=== PATIENT | female | born 1940 | race Hispanic/Latino ===

== ENCOUNTER → 2017-06-24 | Outpatient (CLI) | payer OTHER ==
[~2017-06-24] MED LIST: IBUP-2353 PO
== END | disposition home or self-care (01) ==
LOC: SHCH 12:54
PROVIDERS: ATTEND Internal Medicine Cardiovascular Disease
DX: I35.0 Nonrheumatic aortic (valve) stenosis (principal)
CPT/HCPCS: 93306

== ENCOUNTER → 2018-06-25 | Outpatient (CLI) | payer OTHER, MEDICARE | END | disposition home or self-care (01) | LOC: SHCH 09:51 | PROVIDERS: ATTEND Internal Medicine Cardiovascular Disease | DX: I51.7 Cardiomegaly (principal); I35.0 Nonrheumatic aortic (valve) stenosis | CPT/HCPCS: 93306 ==

== ENCOUNTER → 2018-09-27 | Outpatient (CLI) | payer OTHER, MEDICARE ==
[~2018-09-27] MED LIST changes: +ACET-2893 PO; +ALEN70TA10 PO; +CA C-5 PO; +FLUT15.88 NS; +LEVO50TA11 PO; +LORA-868 PO; +MECL12.585 PO; +PRAV40TA3 PO; +RANI150T7 PO
[2018-09-27 14:58] LABS: CREATININE 1.2 mg/dL (0.5-1.5)
== END | disposition home or self-care (01) ==
LOC: LAB 13:52
PROVIDERS: ATTEND Otolaryngology Plastic Surgery within the Head & Neck
DX: H90.3 Sensorineural hearing loss, bilateral (principal)
CPT/HCPCS: 36415; 82565; 84520

== ENCOUNTER → 2018-09-28 | Outpatient (CLI) | payer OTHER, MEDICARE ==
[~2018-09-28] MED LIST changes: +GADODIAMIDE 10 MMOL/20 ML VIAL IV ONE
== END | disposition home or self-care (01) ==
LOC: RAH 13:41
PROVIDERS: ATTEND Otolaryngology Plastic Surgery within the Head & Neck
DX: H90.3 Sensorineural hearing loss, bilateral (principal); R90.82 White matter disease, unspecified
CPT/HCPCS: 70553 ×2; A9579

== ENCOUNTER 2018-10-04 07:02 | Observation (INO) | payer OTHER, MEDICARE ==
[2018-10-01 17:08] LABS: BASOPHILS % (AUTO) 0.8 % (0.0-5.0); EOSINOPHILS % (AUTO) 5.2 % (0.0-8.0); HEMATOCRIT 37.8 % (36-48); LYMPHOCYTES % (AUTO) 32.9 % (21.0-51.0); MEAN CORPUSCULAR HEMOGLOBIN 33.1 pg (27.0-33.0); MEAN CORPUSCULAR HGB CONC 33.5 g/dL (32.0-36.0); MEAN CORPUSCULAR VOLUME 98.7 fL (79-99); MONOCYTES % (AUTO) 11.3 % (3.0-13.0); NEUTROPHILS % (AUTO) 49.8 % (40.0-77.0); PLATELET COUNT (AUTO) 133 K/uL (130-400); RED BLOOD CELL COUNT(AUTO) 3.83 MIL/uL (4.00-5.50); WHITE BLOOD COUNT (AUTO) 4.4 K/uL (4.8-10.8)
[2018-10-01 17:16] LABS: INR 0.95 (0.85-1.15); PARTIAL THROMBOPLASTIN TIME 29.6 SEC (26.3-35.5)
[2018-10-01 17:19] LABS: POTASSIUM 3.8 mmol/L (3.5-5.1)
[2018-10-01 17:44] VITALS: BP 160/73
--- NOTE | 2018-10-01 18:34 | NUR ---
DR. HERNANDEZ AWARE PT DOES NOT WANT TO RECEIVE BLOOD OR BLOOD PRODUCTS. OK TO PROCEED WITH SURGERY.
[2018-10-04] VITALS (22 sets, daily range): BP systolic 80–143; BP diastolic 44–74
[~2018-10-04] VITALS: Ht 152.4 cm; Wt 73.5 kg
[2018-10-04] MEDS: CEFAZOLIN SODIUM 1 GM VIAL IVP SCH ×3 (06:00→18:04)
[~2018-10-04 07:02] MED LIST changes: -GADODIAMIDE 10 MMOL/20 ML VIAL IV ONE; -IBUP-2353 PO
--- NOTE | 2018-10-04 08:40 | NUR ---
POTENTIAL FOR INFECTION: SKIN AND NASAL ANTISEPTIC IODINE SWAB TO BILATERAL NOSTRILS DONE.
[2018-10-04] MEDS: LACTATED RINGERS 1000ML 1,000 ML IV SCH ×2 (08:59→10:44)
--- NOTE | 2018-10-04 09:00 | NUR ---
POTENTIAL FOR INFECTION: NO SHAVING NEEDED TO RIGHT KNEE / LEG. WIPED WITH SONNY: 2% CHLORHEXIDINE GLUCONATE CLOTH PATIENTS PRE-OP SKIN PREP PER JALIL STANFORD MA.
[2018-10-04] MEDS ORDERED: ASPI-555 PO (09:29)
[2018-10-04] MEDS ORDERED: MIDAZOLAM HCL 1 MG/ML 2ML VIAL ONE ×3 (10:49→13:40)
[2018-10-04] MEDS ORDERED: DEXAMETHASONE SOD PHOSPHATE 10MG/ML 1ML VIAL ONE (10:55)
[2018-10-04] MEDS ORDERED: ONDANSETRON HCL 4 MG/2 ML VIAL ONE (10:55)
[2018-10-04] MEDS ORDERED: LIDOCAINE PF 2% 5ML ABBOJECT ONE (10:55)
[2018-10-04] MEDS ORDERED: PROPOFOL 10 MG/ML 20ML VIAL IV ONE (10:55)
[2018-10-04] MEDS ORDERED: FENTANYL CITRATE PF 50 MCG/1 ML 2ML VIAL ONE (10:55)
[2018-10-04] MEDS ORDERED: EPHEDRINE SULFATE 50 MG/ML AMPULE ONE (11:12)
[2018-10-04] MEDS ORDERED: ROCURONIUM 10MG/1ML SYR 10 MG/ML ML ONE (11:19)
[2018-10-04] MEDS ORDERED: TRANEXAMIC ACID 1000MG/10ML IV ONE (12:07)
[2018-10-04] MEDS ORDERED: NEOSTIGMINE 5MG/5ML SYR IV ONE (12:21)
[2018-10-04] MEDS ORDERED: GLYCOPYRROLATE 1 MG/5 ML SYRINGE ONE (12:21)
[2018-10-04] MEDS ORDERED: TRAMADOL HCL 50 MG TABLET PO PRN (13:00)
[2018-10-04] MEDS ORDERED: FERROUS FUMARATE 324 MG TABLET PO PRN (13:00)
[2018-10-04] MEDS ORDERED: MECLIZINE HCL 12.5 MG TABLET PO PRN (13:00)
[2018-10-04] MEDS ORDERED: ONDANSETRON HCL 4 MG/2 ML VIAL IVP PRN (13:00)
[2018-10-04] MEDS ORDERED: CALCIUM CARBONATE 500 MG TABLET PO PRN (13:00)
[2018-10-04] MEDS ORDERED: MEPERIDINE-PF 25 MG/ML SYG ONE (13:16)
[2018-10-04] MEDS ORDERED: ROPIVACAINE 0.5% 5MG/ML 30ML IJ ONE (13:41)
[2018-10-04] MEDS: ACETAMINOPHEN EXTRA STRENGTH 500 MG TABLET PO SCH ×2 (14:22→20:41)
[2018-10-04] MEDS: SODIUM CHLORIDE 0.9% 1000ML 1,000 ML IV SCH (14:22)
[2018-10-04] MEDS: OXYCODONE HCL 5 MG TAB PO PRN ×2 (15:32→21:39)
--- NOTE | 2018-10-04 18:03 | NUR ---
INITIAL AND ORDER FOR RETYESI MET W PT AT [facility]- S/P TKA; LIVES ALONE, [place], HAD COMODDE AND WKR; PROVIDER 3 HRS DAY- CANNOT STAY W DAUGHTER POST OP, DAUGHTER CANNOT STAY WITH HER; ORDER FOR [facility] FOR SHORT TERM REHAB FORM DR. HERNANDEZ- MALCOLM/TRENT VERBAL FROM PT ; CALL TO DAUGHTER ARNOLD TO CONSENT TO PLAN [facility]EL[facility]; REFERRAL PENDING FOR AM Addendum: 10/04/18 at 1806 by ESTEPHANIE QUIROS RN Amended: Links added.
[2018-10-04] MEDS: ASPIRIN 81 MG EC TAB PO SCH (20:37)
[2018-10-05] MEDS: CEFAZOLIN SODIUM 1 GM VIAL IVP SCH (01:54)
[2018-10-05] MEDS: SODIUM CHLORIDE 0.9% 1000ML 1,000 ML IV SCH ×2 (01:54→08:56)
[2018-10-05 04:00] VITALS: BP 89/60
[2018-10-05 04:22] LABS: MEAN CORPUSCULAR HEMOGLOBIN 33.8 pg (27.0-33.0); MEAN CORPUSCULAR HGB CONC 34.5 g/dL (32.0-36.0); MEAN CORPUSCULAR VOLUME 98.1 fL (79-99); PLATELET COUNT (AUTO) 124 K/uL (130-400); RED BLOOD CELL COUNT(AUTO) 3.06 MIL/uL (4.00-5.50); RED CELL DISTRIBUTION WIDTH 14.7 % (11.0-15.5); WHITE BLOOD COUNT (AUTO) 7.1 K/uL (4.8-10.8)
[2018-10-05 04:34] LABS: CREATININE 1.1 mg/dL (0.5-1.5); POTASSIUM 3.8 mmol/L (3.5-5.1)
[2018-10-05] MEDS: ACETAMINOPHEN EXTRA STRENGTH 500 MG TABLET PO SCH ×3 (06:36→19:53)
[2018-10-05 08:00] VITALS: BP 95/56
[2018-10-05] MEDS: LEVOTHYROXINE 50 MCG TABLET PO SCH (08:30)
[2018-10-05] MEDS: FAMOTIDINE 20MG TAB 20 MG TAB PO SCH (08:30)
[2018-10-05] MEDS: POLYETHYLENE GLYCOL 3350 17 GM POWD.PACK PO SCH (08:30)
[2018-10-05] MEDS: ASPIRIN 81 MG EC TAB PO SCH ×2 (08:30→19:52)
[2018-10-05] MEDS: OXYCODONE HCL 5 MG TAB PO PRN ×2 (08:36→19:56)
[2018-10-05 11:00] VITALS: BP 91/52
[2018-10-05 16:00] VITALS: BP 95/52
--- NOTE | 2018-10-05 16:45 | NUR ---
DONAL WETZEL RN AWARE RN TO FOLLOW UP WITH FOR DC ORDER FOR TODAY IF ARIANA ISSA AWARE LOC [facility] DC TONIGHT OR TOMORROW Addendum: 10/05/18 at 1848 by ESTEPHANIE QUIROS RN CM Amended: Links added.
[2018-10-05 19:54] VITALS: BP 100/59
[2018-10-05 23:15] VITALS: BP 111/61
[2018-10-06] MEDS: OXYCODONE HCL 5 MG TAB PO PRN ×2 (00:09→08:56)
[2018-10-06 04:00] VITALS: BP 131/65
[2018-10-06] MEDS: ACETAMINOPHEN EXTRA STRENGTH 500 MG TABLET PO SCH ×2 (04:29→13:26)
[2018-10-06 07:51] VITALS: BP 137/65
[2018-10-06] MEDS: ASPIRIN 81 MG EC TAB PO SCH (08:54)
[2018-10-06] MEDS: FAMOTIDINE 20MG TAB 20 MG TAB PO SCH (08:55)
[2018-10-06] MEDS: LEVOTHYROXINE 50 MCG TABLET PO SCH (08:55)
[2018-10-06] MEDS: POLYETHYLENE GLYCOL 3350 17 GM POWD.PACK PO SCH (08:56)
[2018-10-06 11:12] VITALS: BP 132/74
--- NOTE | 2018-10-06 16:10 | NUR ---
ATTEMPTED TO CALL [facility] FOR REPORT CALLED [facility] [phone] AND WAS TOLD NURSE WOULD CALL ME BACK FOR REPORT, GAVE MY CALLBACK NUMBER. AWAITING CALLBACK.
--- NOTE | 2018-10-06 16:35 | NUR ---
REATTEMPTED TO CALL [facility] SLITTER AND REWINDER CALLED [facility] TO INFORM STAFF I AM ATTEMPTING TO CALL TO GIVE NURSE REPORT. CALLBACK NUMBER GIVEN, AWAITING CALLBACK.
--- NOTE | 2018-10-06 16:50 | NUR ---
[facility] REPORT GIVEN TO ROSALBA TIRADO OF [facility] [phone]. MEDICATIONS RECONCILIATION FORM FAXED TO [phone]. ROSALBA TIRADO ASKED ME TO FAX MEDICATIONS RECONCILIATION FORM TO [phone]. [address] HERNANDEZ TO INFORM MD THAT [facility] MAY NOT HAVE PRN PAIN MEDICATIONS AVAILABLE WITHOUT A WRITTEN RX AND MD STATED HE WOULD ENSURE THE RX WOULD BE SENT TO [facility].
--- NOTE | 2018-10-06 17:15 | NUR ---
DISCHARGE DISCHARGE TEACHING PROVIDED TO PATIENT. INFORMED OF SCHEDULED F/U WITH DR. BRANDT, AND MANUEL RIVERA FOR DR. HERNANDEZ DISCHARGE INSTRUCTIONS. REMOVED 20G IV FROM LEFT HAND, CATHETER INTACT. RIGHT KNEE INCISION DRESSING DRY AND INTACT, DRESSING CHANGE PERFORMED TODAY PER BUILDING INSPECTION ENGINEER NURSE REPORT AT CHANGE OF SHIFT. PATIENT VERBALIZED UNDERSTANDING OF DISCHARGE TEACHING.
[2018-10-07] MEDS ORDERED: BISACODYL 10 MG SUPP.RECT RC PRN (13:00)
== END 2018-10-06 17:31 ==
LOC: DAH 07:02 → 4BH 07:03 → INTOOBSV 07:03 → DAH 07:03
PROVIDERS: ADMIT Orthopaedic Surgery; ATTEND Orthopaedic Surgery
DX: M17.11 Unilateral primary osteoarthritis, right knee (principal)
CPT/HCPCS: 27447; 36415 ×2; 80048 ×2; 85025; 85027; 85610; 85730; 86850; 86900; 86901; 87641; 88305; 88311; 96374; 96376; 97116 ×4; 97161; 97530 ×4; A4450; A4649 ×5; A4930; A6223; C1776; G0378 ×47; G8978; G8979; G8980; G8981; G8982; G8983; J0690 ×3; J1100; J2001; J2175; J2250 ×3; J2405; J2704; J2710; J2795; J3010; J3490 ×3; J7030; J7120

== ENCOUNTER → 2019-07-21 | Outpatient (CLI) | payer OTHER, MEDICARE ==
[~2019-07-21] MED LIST changes: +ASPI-555 PO; +FLUT15.845 NS; -FLUT15.88 NS; +MECL-183 PO; -MECL12.585 PO
== END | disposition home or self-care (01) ==
LOC: OIH 08:53
PROVIDERS: ATTEND Family Medicine
DX: R05 Cough (principal)
CPT/HCPCS: 71046

== ENCOUNTER → 2019-08-01 | Outpatient (CLI) | payer OTHER, MEDICARE ==
[~2019-08-01] MED LIST changes: -ALEN70TA10 PO; +ALEN70TA69 PO; -ASPI-555 PO; +ASPI-556 PO
== END | disposition home or self-care (01) ==
LOC: RAH 13:40
PROVIDERS: ATTEND Family Medicine
DX: J43.2 Centrilobular emphysema (principal); J98.11 Atelectasis; R91.1 Solitary pulmonary nodule; J84.10 Pulmonary fibrosis, unspecified; K75.3 Granulomatous hepatitis, not elsewhere classified; M47.815 Spondylosis without myelopathy or radiculopathy, thoracolumbar region; M25.78 Osteophyte, vertebrae
CPT/HCPCS: 71250

== ENCOUNTER → 2020-08-14 | Outpatient (CLI) | payer OTHER, MEDICARE ==
[~2020-08-14] MED LIST changes: -ALEN70TA69 PO; +ALEN70TA80 PO; -MECL-183 PO; +MECL-226 PO
== END | disposition home or self-care (01) ==
LOC: SHCH 08-13 09:05
PROVIDERS: ATTEND Internal Medicine Cardiovascular Disease
DX: I35.0 Nonrheumatic aortic (valve) stenosis (principal); E66.9 Obesity, unspecified; E78.5 Hyperlipidemia, unspecified; C34.90 Malignant neoplasm of unspecified part of unspecified bronchus or lung; R55 Syncope and collapse
CPT/HCPCS: 93306; 93356

== ENCOUNTER → 2020-08-20 | Outpatient (CLI) | payer OTHER, MEDICARE | END | disposition home or self-care (01) | LOC: RAH 14:33 | PROVIDERS: ATTEND Family Medicine | DX: M17.12 Unilateral primary osteoarthritis, left knee (principal) | CPT/HCPCS: 73562 ==

== ENCOUNTER → 2020-08-24 | Outpatient (CLI) | payer OTHER, MEDICARE | END | disposition home or self-care (01) | LOC: RAH 08:45 | PROVIDERS: ATTEND Family Medicine | DX: K76.0 Fatty (change of) liver, not elsewhere classified (principal); R10.13 Epigastric pain | CPT/HCPCS: 76700 ==

== ENCOUNTER → 2020-10-15 | Outpatient (CLI) | payer OTHER, MEDICARE | END | disposition home or self-care (01) | LOC: RAH 09:04 | PROVIDERS: ATTEND Internal Medicine Gastroenterology | DX: K74.60 Unspecified cirrhosis of liver (principal) | CPT/HCPCS: 76700 ==

== ENCOUNTER 2021-01-16 19:56 | Emergency (ER) | payer OTHER, MEDICARE ==
[~2021-01-16] VITALS: Ht 149.9 cm; Wt 81.2 kg
[2021-01-16] MEDS ORDERED: FUROSEMIDE 40MG VIAL IV STA (20:36)
[2021-01-16 21:30] LABS: BASOPHILS % (AUTO) 1.4 % (0.0-5.0); EOSINOPHILS % (AUTO) 8.7 % (0.0-8.0); HEMATOCRIT 33.9 % (36-48); LYMPHOCYTES % (AUTO) 25.6 % (21.0-51.0); MEAN CORPUSCULAR HEMOGLOBIN 31.8 pg (27.0-33.0); MEAN CORPUSCULAR HGB CONC 31.9 g/dL (32.0-36.0); MEAN CORPUSCULAR VOLUME 99.7 fL (79-99); MONOCYTES % (AUTO) 13.7 % (3.0-13.0); NEUTROPHILS % (AUTO) 50.1 % (40.0-77.0); PLATELET COUNT (AUTO) 153 K/uL (130-400); RED CELL DISTRIBUTION WIDTH 15.9 % (11.0-15.5); WHITE BLOOD COUNT (AUTO) 4.4 K/uL (4.8-10.8)
[2021-01-16 21:42] LABS: CREATININE 1.2 mg/dL (0.5-1.5); POTASSIUM 3.4 mmol/L (3.5-5.1)
[2021-01-16 21:46] LABS: ALBUMIN 3.3 g/dL (3.5-5.0); BILIRUBIN,TOTAL 0.5 mg/dL (0.2-1.0)
[2021-01-16 21:51] LABS: B-TYPE NATRIURETIC PEPTIDE 39 pg/mL (0-100)
[2021-01-16] MEDS ORDERED: FURO-152 PO (22:07)
[2021-01-16 22:55] VITALS: BP 108/68
== END 2021-01-16 23:20 | disposition home or self-care (01) ==
LOC: EDH 19:56
DX: I35.0 Nonrheumatic aortic (valve) stenosis (principal); R60.0 Localized edema; I11.0 Hypertensive heart disease with heart failure; I50.9 Heart failure, unspecified; E78.5 Hyperlipidemia, unspecified; J44.9 Chronic obstructive pulmonary disease, unspecified; E03.9 Hypothyroidism, unspecified; E66.9 Obesity, unspecified; Z79.82 Long term (current) use of aspirin; Z79.899 Other long term (current) drug therapy; Z98.890 Other specified postprocedural states; Z68.36 Body mass index [BMI] 36.0-36.9, adult
CPT/HCPCS: 36415; 71045; 80053; 82550; 83880; 84484; 85025; 93005; 96374; 99285; J1940

== ENCOUNTER 2021-06-26 07:27 | Day surgery (SDC) | payer OTHER, MEDICARE ==
[2021-06-24 14:38] LABS: APPEARANCE,URINE Cloudy (CLEAR); BILIRUBIN,URINE Negative (NEGATIVE); COLOR,URINE Dark Yellow (YELLOW); GLUCOSE, URINE (UA) Negative (NEGATIVE); KETONES,URINE Trace mg/dL (NEGATIVE); LEUKOCYTE ESTERASE ,URINE Moderate (NEGATIVE); NITRATE,URINE Negative (NEGATIVE); OCCULT BLOOD,URINE Negative (NEGATIVE); PH,URINE 6.5 (5.0-8.0); PROTEIN,URINE Negative (NEGATIVE)
[2021-06-24 14:44] LABS: BASOPHILS % (AUTO) 0.7 % (0.0-5.0); EOSINOPHILS % (AUTO) 5.4 % (0.0-8.0); HEMATOCRIT 40.4 % (36-48); LYMPHOCYTES % (AUTO) 30.2 % (21.0-51.0); MEAN CORPUSCULAR HEMOGLOBIN 31.8 pg (27.0-33.0); MEAN CORPUSCULAR HGB CONC 31.7 g/dL (32.0-36.0); MEAN CORPUSCULAR VOLUME 100.5 fL (79-99); MONOCYTES % (AUTO) 10.8 % (3.0-13.0); NEUTROPHILS % (AUTO) 52.7 % (40.0-77.0); PLATELET COUNT (AUTO) 160 K/uL (130-400); RED BLOOD CELL COUNT(AUTO) 4.02 MIL/uL (4.00-5.50); RED CELL DISTRIBUTION WIDTH 14.1 % (11.0-15.5); WHITE BLOOD COUNT (AUTO) 5.7 K/uL (4.8-10.8)
[2021-06-24 14:52] LABS: POTASSIUM 3.4 mmol/L (3.5-5.1)
[2021-06-24 14:53] LABS: PROTHROMBIN TIME 10.9 SEC (9.6-11.6)
[2021-06-24 14:54] LABS: PARTIAL THROMBOPLASTIN TIME 27.4 SEC (26.3-35.5)
[2021-06-24 16:10] LABS: RBC,URINE 0-1 /HPF (0-1)
[2021-06-24 16:11] LABS: BACTERIA,URINE Few /HPF (None Seen); MUCUS,URINE Few LPF (None Seen); SQUAMOUS EPITHELIAL CELL,UR Moderate /HPF (0-2)
[2021-06-25 10:32] VITALS: BP 138/58
[2021-06-26] VITALS (9 sets, daily range): BP systolic 110–136; BP diastolic 40–63
[~2021-06-26] VITALS: Ht 121.9 cm; Wt 67.5 kg
[~2021-06-26 07:27] MED LIST changes: +0.9% NACL 500ML IV.SOLN 500 ML IV SCH; -ACET-2893 PO; -ASPI-556 PO; -CA C-5 PO; +CALC-1125 PO; +DULO30CA52 PO; +FAMO40TA7 PO; +FERR-82 PO; -FLUT15.845 NS; +FURO20TA4 PO; +GLYB2.5T6 PO; -LORA-868 PO; +MAGN250T10 PO; +OMEP40CA21 PO; +POTA10CA44 PO; -RANI150T7 PO
[2021-06-26] MEDS ORDERED: 0.9%NACL 1000ML 1,000 ML IV ONE (07:33)
[2021-06-26] MEDS ORDERED: HEPARIN 10,000 UNIT/10ML (1,000 UNIT/ML) VIAL ONE (13:00)
[2021-06-26] MEDS ORDERED: NITROGLYCERIN 50MG VIAL ONE (13:00)
[2021-06-26] MEDS ORDERED: MIDAZOLAM HCL 1 MG/ML 2ML VIAL ONE (13:00)
[2021-06-26] MEDS ORDERED: FENTANYL CITRATE PF 50 MCG/1 ML 2ML VIAL ONE (13:00)
[2021-06-26] MEDS ORDERED: LIDOCAINE HCL 1% MDV 50ML VIAL ONE (13:01)
[2021-06-26] MEDS ORDERED: IOHEXOL 350 MG/ML 100ML INFUS..BTL IV ONE (13:03)
[2021-06-26] MEDS ORDERED: IOHEXOL-350 50ML VIAL IV ONE (13:03)
[2021-06-26] MEDS ORDERED: DEXTROSE 50%-WATER 50 ML DISP.SYRIN IV PRN (15:30)
[2021-06-26] MEDS ORDERED: 0.9%NACL 1000ML 1,000 ML IV SCH (15:30)
[2021-06-26] MEDS ORDERED: GLUCAGON 1MG KIT 1 MG ML IM PRN (15:30)
[2021-06-26] MEDS ORDERED: INSULIN HUMULIN R 100 UNIT/ML 3ML SQ SCH (16:30)
== END 2021-06-26 18:10 | disposition home or self-care (01) ==
LOC: DAH 07:27 → EDSTATUS 12:00 → DAH 18:10
PROVIDERS: ATTEND Internal Medicine Cardiovascular Disease
DX: I35.0 Nonrheumatic aortic (valve) stenosis (principal); I25.10 Atherosclerotic heart disease of native coronary artery without angina pectoris; I11.0 Hypertensive heart disease with heart failure; I50.33 Acute on chronic diastolic (congestive) heart failure; E11.9 Type 2 diabetes mellitus without complications; E78.5 Hyperlipidemia, unspecified; E03.9 Hypothyroidism, unspecified; Z90.710 Acquired absence of both cervix and uterus; Z83.3 Family history of diabetes mellitus; Z79.899 Other long term (current) drug therapy; Z79.01 Long term (current) use of anticoagulants
CPT/HCPCS: 36415 ×2; 71045; 80048; 81001; 82948 ×2; 84132; 85025; 85610; 85730; 87088; 93005; 93460; A4215; A4216; A4221; A4222; A4223 ×3; A4606; A4663; C1760 ×2; C1893; C1894 ×3; J1644; J3010; J3490 ×2; J7030; Q9965; Q9967 ×2; 99156; 99157; J2250

== ENCOUNTER 2021-09-20 09:00 | Observation (INO) | payer OTHER, MEDICARE ==
[~2021-09-20] VITALS: Ht 149.9 cm; Wt 65.3 kg
[~2021-09-20 09:00] MED LIST changes: -0.9% NACL 500ML IV.SOLN 500 ML IV SCH
[2021-09-20 09:44] LABS: BASOPHILS % (AUTO) 0.3 % (0.0-5.0); HEMATOCRIT 31.2 % (36-48); LYMPHOCYTES % (AUTO) 6.5 % (21.0-51.0); MEAN CORPUSCULAR HEMOGLOBIN 31.8 pg (27.0-33.0); MEAN CORPUSCULAR HGB CONC 32.1 g/dL (32.0-36.0); MEAN CORPUSCULAR VOLUME 99.4 fL (79-99); MONOCYTES % (AUTO) 3.1 % (3.0-13.0); NEUTROPHILS % (AUTO) 89.8 % (40.0-77.0); PLATELET COUNT (AUTO) 120 K/uL (130-400); RED BLOOD CELL COUNT(AUTO) 3.14 MIL/uL (4.00-5.50); RED CELL DISTRIBUTION WIDTH 13.1 % (11.0-15.5); WHITE BLOOD COUNT (AUTO) 6.5 K/uL (4.8-10.8)
[2021-09-20 09:47] LABS: APPEARANCE,URINE Turbid (CLEAR); BILIRUBIN,URINE Negative (NEGATIVE); COLOR,URINE Yellow (YELLOW); GLUCOSE, URINE (UA) Negative (NEGATIVE); KETONES,URINE Trace mg/dL (NEGATIVE); LEUKOCYTE ESTERASE ,URINE Trace (NEGATIVE); NITRATE,URINE Negative (NEGATIVE); OCCULT BLOOD,URINE Negative (NEGATIVE); PROTEIN,URINE Negative (NEGATIVE)
[2021-09-20 10:11] LABS: CREATININE 0.9 mg/dL (0.5-1.5); POTASSIUM 3.1 mmol/L (3.5-5.1)
[2021-09-20 10:15] LABS: BILIRUBIN,TOTAL 0.5 mg/dL (0.2-1.0); TOTAL PROTEIN, SERUM 6.6 g/dL (6.0-8.3)
[2021-09-20] MEDS ORDERED: 0.9%NACL 1000ML 1,000 ML IV ONE (10:30)
[2021-09-20 10:48] LABS: AMORPHOUS SEDIMENT,UR Few /LPF (None Seen); BACTERIA,URINE Few /HPF (None Seen); RBC,URINE None Seen /HPF (0-1); SQUAMOUS EPITHELIAL CELL,UR 0-2 /HPF (0-2); WBC,URINE None Seen /HPF (0-1)
[2021-09-20] MEDS ORDERED: LORAZEPAM 2 MG/ML 1 ML VIAL ONE (11:04)
[2021-09-20] MEDS ORDERED: DONE5TAB33 PO (11:29)
[2021-09-20] MEDS ORDERED: MELA3CAP2 PO (11:29)
[2021-09-20] MEDS ORDERED: ACET600C5 PO (11:29)
[2021-09-20] MEDS ORDERED: ONDANSETRON 4MG INJ IVP PRN ×2 (13:30→14:00)
[2021-09-20] MEDS ORDERED: LORAZEPAM 2 MG/ML 1 ML VIAL IVP PRN (13:30)
[2021-09-20] MEDS ORDERED: COMPOUND IV MISC 1 EACH IVSOLN MISC PRN (14:00)
[2021-09-20] MEDS: MIDODRINE HCL 5 MG TABLET PO SCH ×2 (14:00→21:53)
[2021-09-20] MEDS: 0.9%NACL 1000ML 1,000 ML IV SCH ×2 (14:34→20:37)
[2021-09-20] MEDS ORDERED: LEVETIRACETAM 500 MG in 0.9%NACL 100ML 100 ML IV SCH (15:00)
[2021-09-20] MEDS ORDERED: LEVETIRACETAM 500 MG/5 ML SD VIAL IV STA (15:00)
[2021-09-20] MEDS: LEVETIRACETAM 1,000 MG in 0.9%NACL 100ML 100 ML IV SCH ×2 (15:12→16:16)
[2021-09-20 22:23] VITALS: BP 105/44
[2021-09-21] MEDS ORDERED: PANTOPRAZOLE 40 MG/VIAL IVP SCH (09:00)
== END 2021-09-20 23:22 | disposition short-term general hospital (02) ==
LOC: EDH 09:00 → EDHIP 12:57
PROVIDERS: ADMIT Internal Medicine; ATTEND Internal Medicine
DX: R56.9 Unspecified convulsions (principal); Z20.822 Contact with and (suspected) exposure to COVID-19; S00.83XA Contusion of other part of head, initial encounter; E87.2 Acidosis; M62.82 Rhabdomyolysis; F03.90 Unspecified dementia, unspecified severity, without behavioral disturbance, psychotic disturbance, mood disturbance, and anxiety; D69.6 Thrombocytopenia, unspecified; E88.09 Other disorders of plasma-protein metabolism, not elsewhere classified; E87.6 Hypokalemia; E83.51 Hypocalcemia; I11.0 Hypertensive heart disease with heart failure; I50.9 Heart failure, unspecified; D72.810 Lymphocytopenia; E78.00 Pure hypercholesterolemia, unspecified; E03.9 Hypothyroidism, unspecified; E78.5 Hyperlipidemia, unspecified; I35.0 Nonrheumatic aortic (valve) stenosis; K21.9 Gastro-esophageal reflux disease without esophagitis; R42 Dizziness and giddiness; X58.XXXA Exposure to other specified factors, initial encounter; Y93.89 Activity, other specified; Y92.89 Other specified places as the place of occurrence of the external cause
CPT/HCPCS: 36415; 70450; 70486; 72125; 73030; 73080; 73562; 80053; 81001; 82550; 83605 ×3; 84484; 85025; 87040 ×2; 87088; 87635; 93005; 96361; 96365; 96366; 99291; G0378 ×7; J1953 ×2; J2060

== ENCOUNTER → 2021-10-01 | Outpatient (CLI) | payer OTHER, MEDICARE ==
[~2021-10-01] MED LIST changes: +ACET600C5 PO; +DONE5TAB33 PO; +MELA3CAP2 PO
== END | disposition home or self-care (01) ==
LOC: RAH 08:01
PROVIDERS: ATTEND Family Medicine
DX: R10.9 Unspecified abdominal pain (principal)
CPT/HCPCS: 76700; 76856